=== PATIENT | female | born 1995 | race Caucasian/White ===

== ENCOUNTER 2019-05-16 02:11 | Emergency (ER) | payer BC ==
[~2019-05-16] VITALS: Ht 162.6 cm; Wt 61.2 kg
[2019-05-16 02:15] VITALS: BP_SYST 134
--- NOTE | 2019-05-16 02:15 | NUR ---
Patient triaged and placed in waiting room. VSS and patient appears in no acute distress at this time. Accompanied by MOTHER, awaiting available bed, and MD notified of need for MSE.
[2019-05-16] MEDS: ACETAMINOPHEN 325 MG TABLET PO ONE (03:02)
--- NOTE | 2019-05-16 03:03 | NUR ---
Pt brought to ed by mother. Pt awake, alert, oriented x4. Pt states that he was having generalized body aches yesterday. Pt states that when he woke up this morning he had headache, fever, nausea, and body aches. Pt states that he had fever in excess of 104 F when taken at home. Pt presented to ED with Flu fever of 102.6. Pt denies chest pain, vomiting, shortness of breat. Pt denies any other medical complaint at this time. VSS
--- NOTE | 2019-05-16 03:03 | NUR ---
Patient to ER bed 7 to gown for evaluation. Side rails up.
[2019-05-16] MEDS ORDERED: ACETAMINOPHEN 325 MG TABLET ONE (03:16)
[2019-05-16] MEDS: OSELTAMIVIR PHOSPHATE 75 MG CAPSULE PO ONE (04:16)
--- NOTE | 2019-05-16 04:31 | NUR ---
Patient given written and verbal discharge instructions and verbalizes understanding. ER MD discussed with patient the results and treatment provided. Patient in stable condition. ID arm band removed. Rx of Tamiflu given. Patient educated on pain management and to follow up with PMD. Pain Scale 2/10. Opportunity for questions provided and answered. Medication side effect fact sheet provided.
[2019-05-16 04:32] VITALS: BP_SYST 126
== END 2019-05-16 04:31 | disposition home or self-care (01) ==
LOC: SED 02:11
DX: J10.1 Influenza due to other identified influenza virus with other respiratory manifestations (principal); J45.909 Unspecified asthma, uncomplicated
CPT/HCPCS: 86710; 99283; G9035; 36415